=== PATIENT | male | born 2005 | race African-American/Black ===

== ENCOUNTER 2023-04-20 11:43 | Day surgery (SDC) | payer OTHER ==
--- NOTE | 2023-04-19 13:33 | P.HPOR ---
History of Present Illness H&P Date: 04/19/23 Subjective: This is a 17 year old male that presents today for initial evaluation regarding left middle and ring finger injuries that occurred on 04/01/23. [place] and in spun out and he hurt his hand. He went to the ED the next day and was placed in a splint which he has been in since the injury. He has pain and swelling of the digits and limited ROM. He denies any prior injury to this hand in the past. He is left handed and works and [employer]. Physical Examination: LUE: AIN/PIN/Radial/Ulnar/Median motor intact. Radial/Ulnar/Median SILT. 2+/4 Radial/Ulnar pulses palpated. 5/5 APB, 5/5 FDI. Bruising present over middle and ring fingers, motion limited due to pain. Imaging: X-Rays of the left ring finger 2 view taken in office today demonstrate long oblique middle phalanx fracture with extension into the PIP joint with marked articular gapping and comminution. X-Rays of the left middle finger 2 view taken in office today demonstrate a comminuted volar articular fracture of the middle phalanx base with a congruent and reduced PIP joint. Impression: 1.) Left middle finger displaced intra-articular middle phalanx fracture 2.) Left ring finger displaced intra-articular middle phalanx fracture Plan: Diagnosis and treatment options were discussed with the patient. We discussed the complex nature of both of his injuries. His left middle finger volar articular fragment has reduced into acceptable alignment and his PIP joint is stable on imaging today with a congruent joint surface. For the left ring finger we discussed open reduction internal fixation. Risks and benefits of surgery including bleeding, infection, damage to surrounding tissue, need for further surgery, residual numbness were discussed and the patient wished to go forward with surgery. He is scheduled for a left ring finger open reduction internal fixation. The patient was agreeable with this plan. -Buster Hill DO Orthopedic Hand/Upper Extremity Surgeon Past Medical History Past Medical History: Sleep Apnea/CPAP/BIPAP Additional Past Medical History / Comment(s): Pre-diabetes, RICH with Cpap use. History of Any Multi-Drug Resistant Organisms: None Reported Additional Past Surgical History / Comment(s): Bilateral knee surgery for genu varum. Past Anesthesia/Blood Transfusion Reactions: No Reported Reaction Smoking Status: Never smoker - Past Family History Mother Family Medical History: Asthma, COPD Father Family Medical History: Diabetes Mellitus Medications and Allergies Home Medications Medication Instructions Recorded Confirmed Type Ergocalciferol [Vitamin D2 (1250 1,250 mcg PO TH 04/14/23 04/14/23 History Mcg = 58675 Iu)] HYDROcodone/APAP 10-325MG [[place] 1 tab PO Q4H PRN 04/14/23 04/14/23 History 10-325] Phentermine HCl [Adipex-P] 37.5 mg PO AC-BRKFST 04/14/23 04/14/23 History Allergies Allergy/AdvReac Type Severity Reaction Status Date / Time No Known Allergies Allergy Verified 04/14/23 09:12 Physical Examination Osteopathic Statement: *. No significant issues noted on an osteopathic structural exam other than those noted in the History and Physical/Consult.
[~2023-04-20 11:43] MED LIST: DEXAMETHASONE SOD PHOSPHATE 4 MG/ML 1 ML VIAL IV ONE; HYDROmorphone 0.5 MG/0.5 ML SYRINGE IVP PRN; ONDANSETRON 4 MG/2 ML VIAL IVP ONE; ceFAZolin 3 GM in SODIUM CHLORIDE 0.9% 100 ML IVPB PRN
[2023-04-20] MEDS: LACTATED RINGERS 1,000 ML IV SCH ×2 (12:15→16:53)
[2023-04-20 12:41] LABS: Glucose,Whole Blood 87 mg/dL (70-110)
[2023-04-20 12:52] VITALS: RESP 16
[2023-04-20] MEDS ORDERED: BUPIVACAINE (PF) 0.5% 30 ML VIAL SQ ONE ×2 (14:12→16:08)
[2023-04-20 16:33] LABS: Glucose,Whole Blood 114 mg/dL (70-110)
[2023-04-20 16:41] VITALS: TEMP 97
--- NOTE | 2023-04-20 17:43 | P.OP ---
Date of Procedure: 04/20/23 Preoperative Diagnosis: 1.) Left ring finger intra-articular middle phalanx fracture 2.) Left middle finger intra-articular middle phalanx fracture dislocation Postoperative Diagnosis: 1.) Left ring finger intra-articular middle phalanx fracture 2.) Left middle finger intra-articular middle phalanx fracture dislocation Procedure(s) Performed: 1.) Open reduction internal fixation of left ring finger intra-articular middle phalanx fracture (31985) 2.) Closed treatment with manipulation of left middle finger intra-articular middle phalanx fracture (99059) Implants: [place] 1.7mm cortical screws x 4 Surgeon: Buster Hill [employer] Instructor #1: Kyrie Rankin Estimated Blood Loss (ml): 0 Pathology: none sent Condition: stable Disposition: PACU Description of Procedure: This is a 17 year old male who sustained a left ring finger intra-articular middle phalanx fracture and presents today for surgical intervention. Risks and benefits of surgery were discussed with the patient including bleeding, damage to surrounding tissue, infection, need for further surgery as well as risks of anesthesia including pulmonary embolism and even and the patient wished to proceed with surgical intervention. The patient was seen in the pre-operative area by myself. Consent and H&P were completed and updated. The correct extremity was marked in the pre-operative area by myself and all other questions were answered. Operative Narrative: The patient was brought to the operating room by the department of anesthesia. They remained on the portable stretcher and a rolling hand table was brought to the side of the operative extremity. Pre-operative time out was performed indicating the correct patient, procedure and laterality. All in the room agreed. Pre-operative antibiotics were given prior to skin incision. The patient was then drifted off to sleep by the department of anesthesia. A nonsterile tourniquet was then applied to the operative extremity and the left upper extremity was then prepped and draped in normal sterile fashion. The operative extremity was the exsanguinated with an esmarch bandage and the tourniquet was inflated to 250mmHg. Mid axial radial incision was made over the length of the entire ring finger middle phalanx. Blunt dissection was taken down through subcutaneous tissues. The extensor berg was elevated sharply with a 15 blade scalpel. Care was taken to bluntly dissect the dorsal sensory branch of the radial digital nerve and protect the nerve with a retractor. The fracture opening was then entered and fibrous tissue and early callus was debrided from the fracture site and the fracture edges were sharply dissected for good cortical read. There appeared to be central impaction at the articular and metadiaphyseal portion of the PIP joint of the middle phalanx base. Small comminuted fragments of the middle phalanx base that were non-viable were excised. The entire length of the fracture was dissected which extended into the PIP joint and exited several millimeters slightly proximal to the DIP joint volarly. The extensor berg was bluntly elevated off of the dorsal cortex of the middle phalanx. Irrigation, currette and [place] tip suction was used to clear any remaining non viable comm inution/debris in the fracture site. The radial collateral ligament at the PIP joint was sharply divided longitudinally to directly visualize the joint. A pointed reduction clamp was then used to close the coronal split that the fracture created at the joint line and a second reduction clamp was used to reduce the shaft. The joint was made as congruent as possible considering the central impaction and acceptable reduction of the PIP joint articular surface was appreciated. Four separate 1.7 mm [place] cortical screws were then drilled and inserted from dorsal to volar perpendicular to the fracture site obtaining great compression across the fracture site and anatomic reduction on the radial cortex was able to be achieved. Clamp was removed after all screws were placed and the finger was then ranged and full flexion/extension was able to be achieved and was smooth at the PIP joint. The wound was then irrigated and the radial collateral ligament was repaired with 4-0 monocryl suture. Digital nerve block was performed by injecting 10 cc of 0.5% bupivacaine into the ring finger. Attention was then drawn to the middle finger. The middle finger with a known comminuted volar middle phalanx base fracture was then evaluated. The PIP joint was manipulated under live fluoroscopy and was found to be completely stable in both flexion and extension, therefore decision was made to treat the fracture conservatively and closed. A sterile splint and dressing was applied consisting of Adaptic, 4 x 4's, cast padding and a dorsal extension blocking splint. The tourniquet was let down in the hand and fingers had immediate perfusion. Kyrie MARTÍNEZ was present for the case to assist in fracture reduction and hardware placement. The patient was then woken by the department of anesthesia and transferred to PACU in stable condition. Buster Hill D.O. Orthopedic Hand/Upper Extremity Surgeon
[2023-04-20] MEDS ORDERED: ONDANSETRON 4 MG/2 ML VIAL IVP ONE (18:12)
[2023-04-20 18:23] VITALS: BP 134/71; PULSE 112
== END 2023-04-20 18:29 | disposition home or self-care (01) ==
LOC: OR 11:43
PROVIDERS: ATTEND Orthopaedic Surgery Hand Surgery
DX: S62.625A Displaced fracture of middle phalanx of left ring finger, initial encounter for closed fracture (principal); S62.623A Displaced fracture of middle phalanx of left middle finger, initial encounter for closed fracture; G47.33 Obstructive sleep apnea (adult) (pediatric); Z83.3 Family history of diabetes mellitus; Z79.899 Other long term (current) drug therapy; X58.XXXA Exposure to other specified factors, initial encounter
CPT/HCPCS: 26746; 26742; J1100; J0690; J2405; J0665